=== PATIENT | male | born 1940 | race Caucasian/White ===

== ENCOUNTER 2025-04-29 08:47 | Emergency (ER) | payer MEDICARE, BC, SELFPAY ==
--- OUTSIDE RECORDS SUMMARY | 2025-04-29 08:52 | XMS_ITS | Clinical Summary ---
Author Organization [facility] Address [address] [place] [id number] Care Team Providers Care Wire Annealer Name Role Phone Niko Campo MD Primary Care Provider [phone] Allergies No known active allergies Medications aspirin chewable 81 mg chewable tabletIndications:Pure hypercholesterolemia Take 1 tablet by mouth once daily with a meal. 0 01/27/20 18 Active gqaiicjargaen-ezuudlpb-u utein (Multivitamin 50 Plus) tab tablet Take 1 Tablet by mouth once daily. Active losartan (COZAAR) 25 mg tabletIndications:Essent ial hypertension Take 1 Tablet (25 mg) by mouth once daily. 90 Tablet 3 09/17/20 24 Active famotidine (PEPCID) 40 mg tabletIndications:Chroni c GERD Take 1 Tablet (40 mg) by mouth at bedtime. 90 Tablet 3 09/17/20 24 Active simvastatin (ZOCOR) 20 mg tabletIndications:Pure hypercholesterolemia Take 1 Tablet (20 mg) by mouth at bedtime. 90 Tablet 3 09/17/20 24 Active Active Problems Problem Noted Date Diagnosed Date Essential hypertension 10/30/2024 Special screening for malignant neoplasm of pros su 10/22/2008 Pure hypercholesterolemia Immunizations Immunization Administration Dates Next Due COVID-19 vaccine ([employer] 30mcg/0.3mL) SHERI SOLO 07/24/2021,12/30/2020,12/09/2020 Influenza, IIV3 (Age >=3 years) 11/02/2012 Zoster (Shingrix-RZV, recombinant) 11/01/2022, Family History Medical History Relation Name Comments Good Health Brother Rehan Stroke Father Stroke Mother Atrial fibrillation Son 1 Fabien Heart attack Son 1 Fabien of this an d MSOF at age 56; heart, kidney and liver failure Cancer-colon Son 2 Zachariah Relation Name Status Comments Brother Rehan Alive Father Mother Sister 1 Alive Sister 2 Yifan Alive Sister 3 Alive Son 1 Fabien Son 2 Zachariah Alive Social History Tobacco Use Types Packs/Day Years Used Date Smoking Tobacco: Never Passive Smoke Exposure: Never Smokeless Tobacco: Never Tobacco Cessation:Counseling Given: Not Answered Alcohol Use Standard Drinks/Week Comments Yes 2 (1 standard drink = 0.6 oz pure alcohol) 1 rum with 7up 2-3 times per week PHQ-2 Answer Date Recorded PHQ-2 TOTAL SCORE 0 04/05/2024 Social Connections Answer Date Recorded Do you often feel lonely or isolated from those around you? 0 04/05/2024 Alcohol Use Answer Date Recorded How often do you have a drink containing alcohol ? 3 09/17/2024 How many drinks containing a lcohol do you have on a typical day when you are drinking? 0 09/17/2024 How often do you have five or more drinks on one occasion? 0 09/17/2024 Financial Resource Strain Answer Date R ecorded Difficulty of Paying Living Expenses 3 04/05/2024 Difficulty of Paying Living Expenses Not on file 04/05/2024 Food Insecurity Answer Date Recorded Do you worry your food will run out before you are able to buy more? 1 04/05/2024 Transportation Needs Answer Date Record ed Does lack of transportation keep you from medica l appointments? 1 04/05/2024 Does lack of transportation keep you from work, meetings or getting things that you need? 1 04/05/2024 Housing Stability Answer Date Recorded What is your housing situation today? 1 04/05/2024 Utilities Answer Date Recorded Do you have trouble paying f or utilities (for example, heat, electricity, water, phone)? 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 file Not on file Not on file Obstetrics History Last Filed Vital Signs Vital Sign Reading Time Taken Comments Blood Pressure 121/75 10/30/2024 8:35 AM DINING ROOM TABLES SET UP ATTENDANT Pulse 60 10/30/2024 8:35 AM DINING ROOM TABLES SET UP ATTENDANT Temperature 36.4 C (97.5 F) 09/17/2024 1:11 PM DINING ROOM TABLES SET UP ATTENDANT Respiratory Rate 16 03/21/2023 10:30 AM CDT Oxygen Saturation 100% 10/30/2024 8:35 AM DINING ROOM TABLES SET UP ATTENDANT Inhaled Oxygen Concentration - - Weight 83 kg (183 lb) 10/30/2024 8:35 AM DINING ROOM TABLES SET UP ATTENDANT Height 173.1 cm (5' 8.15) 04/05/2024 9:47 AM CD T Body Mass Index 27.7 04/05/2024 9:47 AM CDT Plan of Treatment Health Maintenance Due Date Last Done Comments Tetanus booster 1951 Pneumococcal series for age 50+ (1 of 1 - PCV) 1992 RSV vaccine for adults or (1 - 1-dose 75+ series) 2017 COVID-19 vaccine series ( season) 2024 07/24/2021, 12/30/2020, 12/09/2020 BMI (ht and wt on same day) for age 18+ 04/05/2025 04/05/2024, 11/14/2023, 03/07/2023, Additional history exists Depression screening for age 12+ 04/05/2025 04/05/2024, 11/14/2023, 01/02/2023, Additional history exists Medicare Wellness for age 65+ 04/06/2025 04/05/2024, 01/02/2023, 11/01/2021, Additional history exists Influenza Vaccine (#1) 2025 11/02/2012 Zoster (shingles) series for age 50+ Completed 11/01/2022, 06/20/2022 Hepatitis B series for 19+ Aged Out N o longer eligible based on patient's age to complete this topic Insurance [place] BLUE MR PB ONLY MEDICARE PART A HB ONLY MEDICARE PART B HB ONLY [place] BL[place] HB ONLY Advance Directives Documents on File Type Date Recorded Patient Automotive Brake Specialist Expl anation Healthcare Directive 08/24/2018 4:27 PM HE ALTHCARE DIRECTIVE, PHYLICIA RACHEL, 08/14/18 * Full Code (Latest Code Status on File) Date Activated Date Inactivated Comments 03/21/2023 6:15 AM 03/21/2023 1:00 PM Please verif y with the patient. Question Answer Comments Code Status Discussion: Unable to Assess Preferences, Provider to review later Care Teams Wire Annealer Relationship Specialty Start Date End Date Labenski, Niko Rene, MD [address] [place] [address] PCP - General 11/16/06
[2025-04-29 09:00] VITALS: BP 130/80; PULSE 51; RESP 16; TEMP 36.8; O2SAT 99; BMI 25.5
--- NOTE | 2025-04-29 09:47 | CRLHL7_ITS ---
For Patients: As a result of the Century Cures Act, medical imaging exams and procedure reports are released immediately into your electronic medical record. You may view this report before your referring provider. If you have questions, please contact your health care provider. INDICATION: 15 minutes of right eye visual changes, now resolved. COMPARISON: None. TECHNIQUE: CT of the brain / head without intravenous contrast. Multiplanar axial, coronal, and sagittal reformats were reconstructed. FINDINGS: No intracranial hemorrhage. Normal appearance of the white matter. No acute or subacute cortically based infarct. No mass or mass effect. Normal ventricles. No skull fractures. No worrisome focal bone lesion. Normal appearance of the orbits and globes. IMPRESSION: Normal head CT. Please note that all CT scans at this facility use dose modulation, iterative reconstruction, and/or weight-based dosing when appropriate to reduce radiation dose to as low as reasonably achievable. Dictated by Rica Ferguson MD @ 04/29/2025 10:48:14 AM (Electronically Signed)
--- NOTE | 2025-04-29 09:48 | ED.GENADULT ---
HPI - General Adult General Chief complaint: Dizziness/Vertigo Stated complaint: blurry vision on right side, dizziness Time Seen by Provider: 04/29/25 09:15 History of Present Illness HPI narrative: This 85-year-old male comes in with his because of a brief episode of visual changes that occurred prior to arrival. He was getting ready to go for a walk which he normally does and describe some double vision that lasted for 10 or 15 minutes. He did not have any lightheadedness or speech change. There is no unilateral weakness. He does not report a headache. He states that he is otherwise in good health. He does have a occasional dry cough which may be related to lisinopril which she started about 4 months ago. Currently he feels back to normal. These symptoms lasted only tender 15 minutes and have since resolved. He does not report any other previous similar symptoms. Related Data Home Medications ?Medication ?Instructions ?Recorded ?Confirmed aspirin 81 mg chewable tablet 81 mg PO DAILY 04/29/25 04/29/25 famotidine 40 mg tablet 40 mg PO QHS 04/29/25 04/29/25 losartan 25 mg tablet (Cozaar) 25 mg PO DAILY 04/29/25 04/29/25 simvastatin 20 mg tablet 20 mg PO QHS 04/29/25 04/29/25 Allergies Allergy/AdvReac Type Severity Reaction Status Date / Time No Known Drug Allergies Allergy Verified 04/29/25 09:04 Review of Systems Status of ROS: Reports: 10 or more systems reviewed and unremarkable except as noted in History and below Narrative: Constitutional: No fevers, no weight gain or loss. Eyes: No discharge. Brief double vision episode as described above. HENT: No congestion, no sore throat, no ear pain. Cardiovascular: No chest pain, no palpitations. Respiratory: No shortness of breath, no wheezes, no cough. Gastrointestinal: No abdominal pain, no vomiting, no diarrhea. Genitourinary: No dysuria, no hematuria. Musculoskeletal: Normal range of motion. Skin: No rashes, no pruritis. Neurological: No dizziness, weakness, sensory change, speech change. Endo/Heme/Allergies: No bruising or bleeding. No polydipsia. Pysch: no suicidality, no anxiety, no insomnia. All other systems reviewed and are negative. Exam Narrative: Exam Narrative: Constitutional: Well-developed, well-nourished, no acute distress. HEENT: Normocephalic, atraumatic. Funduscopic exam is normal bilaterally. Neck: Normal range of motion. Nontender. Supple. Heart: Regular. No murmurs. Normal rate. Intact distal pulses. Lungs: Clear to auscultation. No chest discomfort. No wheezes, rhonchi, or rales. Abdomen: Normal bowel sounds. Nontender. No rebound tenderness. Genitalia: Deferred. Back: No midline tenderness. Normal range of motion. Extremities: Normal range of motion. No injury. Skin: Intact. No rash. Warm. No erythema or pallor. Neurologic: No altered sensation. No weakness. Alert and oriented. No facial asymmetry. Tongue is midline. Ikddvp-jn-tmoi is normal. No pronator drift. Cooperative Extension Agent strength is equal bilaterally. Able to raise each leg from the bed. Psychiatric: No suicidality. No anxiety or depression. No insomnia. Nursing notes and vitals signs are reviewed. Const: Vital Signs, click to edit/add: Vital Signs - 24 hr 04/29/25 09:00 Temperature 98.2 F Pulse Rate [Pulse Oximeter] 51 L Respiratory Rate 16 Blood Pressure [Ri ght Upper Arm] 130/80 Pulse Oximetry 99 Oxygen Delivery Me thod Room Air Course Vital Signs Vital signs: Initial Vital Signs Temperature 98.2 F 04/29/25 09:00 Temperature Source Temporal Artery Scan 04/29/25 09:00 Pulse Rate 51 L 04/29/25 09:00 Respiratory Rate 16 04/29/25 09:00 Blood Pressure 130/80 04/29/25 09:00 Blood Pressure Mean 96 04/29/25 09:00 Blood Pressure Position Sitting 04/29/25 09:00 Pulse Oximetry 99 04/29/25 09:00 Oxygen Delivery Method Room Air 04/29/25 09:00 Vital Signs Temperature 98.2 F 04/29/25 09:00 Pulse Rate 51 L 04/29/25 09:00 Respiratory Rate 16 04/29/25 09:00 Blood Pressure 130/80 04/29/25 09:00 Pulse Oximetry 99 04/29/25 09:00 Oxygen Delivery Method Room Air 04/29/25 09:00 Temperature 98.2 F 04/29/25 09:00 Pulse Rate 51 L 04/29/25 09:00 Respiratory Rate 16 04/29/25 09:00 Blood Pressure 130/80 04/29/25 09:00 Pulse Oximetry 99 04/29/25 09:00 Oxygen Delivery Method Room Air 04/29/25 09:00 Medical Decision Making MDM Narrative Medical decision making narrative: This patient had a brief episode of visual changes but no other neurologic changes accompanied that. His symptoms have completely resolved and he is currently asymptomatic and has normal vital signs and exam. I did obtain a CT scan of his head and this returns with normal findings also. I also discussed the role of checking labs and in a process of shared decision-making these were declined. I did discuss various explanations for these symptoms including TIA or migraine variant but gave reassurance is with these findings. I advised the patient regarding signs and symptoms that would indicate a need for return and re-evaluation. Imaging Data CT scan - head: Radiologist's impression: Normal head CT. Discharge Plan Discharge Clinical Impression: Change in vision Patient Disposition: Home, Self-Care Condition: Improved Additional Instructions: Continue current plans. Follow up with MD return if symptoms are recurrent or worsening. Prescriptions: No Action simvastatin 20 mg tablet 20 mg PO QHS losartan [Cozaar] 25 mg tablet 25 mg PO DAILY famotidine 40 mg tablet 40 mg PO QHS aspirin 81 mg tablet,chewable 81 mg PO DAILY Follow Up/Referrals: Provider,Not a Local [Primary Care Provider, Family Practice] Stand Alone Forms: [employer] Info Instructions
== END 2025-04-29 11:40 | disposition home or self-care (01) ==
PROVIDERS: Emergency Provider Emergency Medicine Emergency Medical Services
DX: H53.8 Other visual disturbances (principal)
CPT/HCPCS: 70450; 99283; 99284